=== PATIENT | female | born 1995 | race Native Hawaiian/Other Pacific Islander ===

== ENCOUNTER 2021-01-21 02:13 | Emergency (ER) | payer OTHER ==
[~2021-01-21] VITALS: Ht 157.5 cm; Wt 56.8 kg
[2021-01-21 02:19] VITALS: TEMP 98.5
[2021-01-21 02:33] LABS: BASO % 0.3 % (0.0-2.0); EOS # 0.1 (0.0-0.7); EOS % 0.3 % (0-4.0); GRAN # 10.9 (1.4-6.5); GRAN % 70.4 % (42.2-75.2); HEMATOCRIT 44.5 % (37.0-47.0); HEMOGLOBIN 14.3 g/dl (12.5-16.0); LYMPH # 3.1 (1.2-3.4); LYMPH % 20.1 % (20.0-51.0); MEAN CELL VOLUME 99 fl (80.0-100.0); MEAN CORPUSCULAR HEMOGLOBIN 32 pg (27.0-31.0); MEAN CORPUSCULAR HGB CONC 32 g/dl (33.0-37.0); MEAN PLATELET VOLUME 8.9 fl (7.4-10.4); MONO # 1.3 (0.1-0.6); MONO % 8.3 % (1.7-9.3); PLATELET COUNT 293 K/mm3 (130-400); REDCELL DISTRIBUTION WIDTH-CV 12.2 % (11.5-14.5)
[2021-01-21 02:41] LABS: ALANINE AMINOTRANSFERASE 12 U/L (4-34); ALBUMIN 4.9 gm/dL (3.5-5.0); ALCOHOL(ethanol),MEDICAL 13 mg/dL; ALKALINE PHOSPHATASE 53 U/L (50-136); ANION GAP 22 mmol/L (7-16); AST,SGOT 23 U/L (15-37); BILIRUBIN,TOTAL 0.5 mg/dL (0.0-1.0); BLOOD UREA NITROGEN 17 mg/dL (7-17); CALCIUM 9.1 mg/dL (8.4-10.2); CHLORIDE 102 mmol/L (98-107); CREATININE, serum 1.05 (0.52-1.25); GLUCOSE 138 mg/dL (74-106); POTASSIUM 3.5 mmol/L (3.4-5.0); SODIUM 138 mmol/L (137-145); TOTAL PROTEIN 8.1 gm/dL (6.4-8.2)
[2021-01-21 02:44] LABS: CARBON DIOXIDE 14 mmol/L (22-30)
[2021-01-21 03:13] LABS: TROPONIN-I < 0.012 ng/mL (0.000-0.035)
[2021-01-21 04:45] LABS: TRICYCLIC ANTIDEPRESS URINE NEGATIVE
[2021-01-21 09:10] VITALS: BP 117/85; PULSE 70
--- NOTE | 2021-01-22 11:01 | NUR ---
Guanako Balderas Superviser filed a CPS report.
== END 2021-01-21 09:10 | disposition home or self-care (01) ==
LOC: COL.ER 02:13
PROVIDERS: Emergency Medicine
DX: F14.10 Cocaine abuse, uncomplicated (principal); R56.9 Unspecified convulsions
CPT/HCPCS: J7120